=== PATIENT | female | born 1950 | race Caucasian/White ===

== ENCOUNTER 2020-04-02 16:30 | Outpatient (CLI) | payer MEDICARE, OTHER | END 2020-04-02 16:31 | disposition home or self-care (01) | LOC: COV 16:30 | PROVIDERS: ATTEND Family Medicine | DX: R05 Cough (principal); R09.81 Nasal congestion; J34.89 Other specified disorders of nose and nasal sinuses; Z20.822 Contact with and (suspected) exposure to COVID-19 ==

== ENCOUNTER 2023-04-18 10:28 | Outpatient (CLI) | payer MEDICARE, OTHER | END 2023-04-18 10:29 | disposition critical access hospital (66) | LOC: EMS 10:28 | DX: M25.572 Pain in left ankle and joints of left foot (principal); M25.472 Effusion, left ankle; M79.672 Pain in left foot; S90.02XA Contusion of left ankle, initial encounter; S99.912A Unspecified injury of left ankle, initial encounter; W10.8XXA Fall (on) (from) other stairs and steps, initial encounter; Y92.019 Unspecified place in single-family (private) house as the place of occurrence of the external cause | CPT/HCPCS: A0425; A0427 ==

== ENCOUNTER 2023-04-18 11:05 | Inpatient (IN) | payer MEDICARE, OTHER ==
--- NOTE | 2023-04-18 11:09 | ED Physician Documentation ---
PD HPI LOWER EXT INJURY - Stated complaint Stated Complaint: L ANKLE INJ - History obtained from History obtained from: Patient, EMS - Additional information Additional information: She fell down the stairs and has a isolated left ankle injury with severe pain albeit better on the way here after 75 mcg of fentanyl. No other injuries. PD PAST MEDICAL HISTORY - Present Medications Home Medications: Ambulatory Orders Medication Instructions Recorded Confirmed Atorvastatin Calcium 40 mg PO HS 04/18/23 04/18/23 Escitalopram [Lexapro] 10 mg PO DAILY 04/18/23 04/18/23 Estradiol 0.05 mg Patch [Climara 0.0375 mg TOP UD 04/18/23 04/18/23 0.05 mg] Gabapentin [Neurontin] 100 mg PO DAILY 04/18/23 04/18/23 Levothyroxine [Synthroid] 75 mcg PO DAILY 04/18/23 04/18/23 Liothyronine [Cytomel] 5 mcg PO DAILY 04/18/23 04/18/23 Progesterone, Micronized 100 mg PO DAILY 04/18/23 04/18/23 [Prometrium] Zaleplon 5 - 10 mg PO HS PRN 04/18/23 04/18/23 - Allergies Allergies/Adverse Reactions: Allergies Allergy/AdvReac Type Severity Reaction Status Date / Time No Known Allergies Allergy Unknown Verified 04/18/23 11:19 PD ED PE NORMAL - Vitals Vital signs reviewed: Yes - General General: Alert and oriented X 3, No acute distress - Neck Neck: Supple, no meningeal sign, No bony TTP - Extremities Extremities: Other (Tender over the lateral malleolus of the left ankle. No proximal fibular tenderness. No tenderness of the medial malleolus. No foot tenderness. Warm foot is warm and well-perfused. No deformity.) - Neuro Neuro: Alert and oriented X 3, Normal speech Results - Vitals Vitals: Vital Signs - 24 hr 04/18/23 04/18/23 11:07 13:41 Temperature 36.7 C Heart Rate 60 60 Respiratory 18 16 Rate Blood Pressure 136/88 H 131/76 H O2 Saturation 100 99 Oxygen O2 Source Room air - Rads (name of study) Left ankle x-ray Relevant Findings:: Final report received, EMP independent interpretation of test PD Medical Decision Making - ED course ED course: 73-year-old woman with isolated left ankle injury and has a fracture likely needing operative fixation of the distal tibia and fibula. Dr. Kennedy, orthopedics was consulted and they need to order some hardware for her but it sounds like the plan will be to admit her for subsequent operation tonight. She is in a Shimon splint and I offered to replace it with a fiberglass splint but the patient feeling more comfortable without it being manipulated at this point. Departure - Departure Disposition: [facility] DC/Xfer Clinical Impression: Tibia/fibula fracture Qualifiers: Encounter type: initial encounter Fracture type: closed Laterality: left Qualified Code(s): S82.202A - Unspecified fracture of shaft of left tibia, initial encounter for closed fracture Condition: Good Record reviewed to determine appropriate education?: Yes Discharge Date/Time: 04/18/23 14:40
--- NOTE | 2023-04-18 12:02 | XRAY Report ---
PROCEDURE: Ankle 3+V LT INDICATIONS: ankle inj TECHNIQUE: 3 views of the ankle were acquired. COMPARISON: None. FINDINGS: Examination is limited by positioning factors. Bones: Moderately displaced fractures of the distal tibia and fibula. Ankle mortise is normally alig trin[place]. No suspicious bony lesions. Soft tissues: No tibiotalar joint effusion. Achilles tendon appears normal. IMPRESSION: Distal tibial and fibular fractures. Reviewed by: Corrie Meléndez MD on 04/18/2023 12:[address] [facility] Approved by: Corrie Meléndez MD on 04/18/2023 12:[address] [facility] Station ID: [id number]
[2023-04-18] MEDS: KETOROLAC 15 MG/ML VIAL IVP STA (13:35)
[2023-04-18] MEDS: HYDROmorphone 1 MG/ML CARPUJECT IVP STA (13:38)
[2023-04-18] MEDS ORDERED: HYDROcod/ACETAM 5/325 MG TABLET PO PRN (13:58)
[2023-04-18] MEDS ORDERED: ONDANSETRON 4 MG/2 ML VIAL IVP PRN ×2 (13:58→16:52)
[2023-04-18] MEDS ORDERED: ACETAMINOPHEN 325 MG TABLET PO PRN (13:58)
[2023-04-18] MEDS ORDERED: DOCUSATE SODIUM 100 MG CAPSULE PO PRN (13:58)
--- NOTE | 2023-04-18 14:04 | HISTORY & PHYSICAL EXAMINATION ---
HPI - History of Present Illness HPI Comment/Other: Amanda Cross Is a 73-year-old woman who apparently fell down on some concrete steps going to her studio this morning and twisted her ankle. Noted immediate deformity in her foot and ankle area as well as pain. Was unable to stand or weight-bear. There was no bleeding wounds. No loss of conscious or nausea vomiting. No other injuries noted. No prior fractures in her ankle. PMH/PSH - Past Medical History Cardiovascular: positive: Valve disorder Neuro: positive: None MRSA Hx?: No - Past Surgical History Ortho: positive: Hip replacement Other past surgical history: Past medical history: Previous surgeries-2019 right total hip arthroplasty performed at [facility] by Dr. Hercules. Current medications: Cytomel 5 mcg p.o. daily, Lexapro 10 mg p.o. daily, Neurontin 100 mg p.o. daily, Prometrium 100 mg p.o. daily, Synthroid 75 mcg p.o. daily, zalephon 10mg daily. Allergies: None known Social & Family Hx - Social History Does the pt smoke?: No Smoking Status: Never smoker Meds/Allgy - Home Medications Home Medications: Ambulatory Orders Medication Instructions Recorded Confirmed Escitalopram [Lexapro] 10 mg PO DAILY 04/18/23 04/18/23 Gabapentin [Neurontin] 100 mg PO DAILY 04/18/23 04/18/23 Levothyroxine [Synthroid] 75 mcg PO DAILY 04/18/23 04/18/23 Liothyronine [Cytomel] 5 mcg PO DAILY 04/18/23 04/18/23 Progesterone, Micronized 100 mg PO DAILY 04/18/23 04/18/23 [Prometrium] Zaleplon 10 mg PO DAILY 04/18/23 04/18/23 - Allergies Allergies/Adverse Reactions: Allergies Allergy/AdvReac Type Severity Reaction Status Date / Time No Known Allergies Allergy Unknown Verified 04/18/23 11:19 Exam - Vital Signs Vital Signs: Vital Signs x48h Temp Pulse Resp BP Pulse Ox 04/18/23 13:41 60 16 131/76 H 99 04/18/23 11:07 36.7 C 60 18 136/88 H 100 - Physical Exam Comments/Other: Vital signs-stable HEENT: Normocephalic, PERRLA, EOMs intact, nose and throat clear, neck supple wi thout nodes Chest: Clear Cardiovascular: Regular rate and rhythm, S1 and S2 heard without murmurs Abdomen: Soft nontender active bowel sounds Extremities: Within normal limits except for the left lower extremity. Left lower extremity was in a air splint. Her toes were visible and she had active range of motion of the toes. Sensation intact. X-rays: Films that were taken in the emergency room were reviewed. There is a extra-articular distal tibia and fibular fractures noted. Impression/Plan - Problem List Problem List: 1. Closed displaced left distal tibia-fibula fracture 2. History of hypothyroidism 3. History of depression Plan: Discussed treatment options with the patient. She has opted to proceed with surgical fixation of her fracture. Will do this later this evening. We will go ahead and do an open reduction internal fixation with plating to her distal tibia fracture and probable plating to her distal fibular fracture. Risk and benefits of surgery were explained to the patient including but not limited to anesthesia risks infection loss of fixation malunion nonunion blood clots etc. All her questions were answered. She wishes to proceed with surgery as planned. Consent signed.
--- NOTE | 2023-04-18 16:22 | PHARMACY PROGRESS NOTE ---
- Best Possible Medication History Admit Date and Time: 04/18/23 1358 Processed by: Nursing Medication History completed: Yes Patient Interview: Completed Secondary Source(s): Insurance records As the person ultimately responsible for medication therapy, providers are able to order a medication from an existing home medication list in [facility] via the "Reconcile Routine" prior to Confirmation of that medication by support service tech. Such practice is discouraged except when the physician, in their clinical judgment, deems that a medical need exists for a medication without regard to previous use.
[2023-04-18] MEDS ORDERED: fentaNYL 100 MCG/2 ML VIAL ONE (16:41)
[2023-04-18] MEDS ORDERED: PROPOFOL 500 MG/50 ML 500 MG/50 ML VIAL ONE (16:41)
[2023-04-18] MEDS ORDERED: MIDAZOLAM 2 MG/2 ML VIAL ONE (16:41)
[2023-04-18] MEDS ORDERED: HYDROmorphone 0.5 MG/0.5 ML SYRINGE IVP PRN (16:52)
[2023-04-18] MEDS ORDERED: NALOXONE 0.4 MG/ML VIAL IVP PRN (16:52)
[2023-04-18] MEDS ORDERED: ATROPINE ABBOJECT 1 MG/10 ML SYRINGE IVP PRN (16:52)
[2023-04-18] MEDS ORDERED: MORPHINE 2 MG/ML CARPUJECT IVP PRN (16:52)
[2023-04-18] MEDS ORDERED: fentaNYL 100 MCG/2 ML VIAL IVP PRN (16:52)
--- NOTE | 2023-04-18 16:52 | ANESTHESIA ---
Pre-Anesthesia VS, & Labs - Diagnosis Left ankle tib/fib ankle fracture - Procedure ORIF left tib/fib ankle fracture Vital Signs: Temp Pulse Resp BP Pulse Ox O2 Flow Rate 36.5 C 51 L 16 134/64 H 95 04/18/23 15:55 04/18/23 15:55 04/18/23 15:55 04/18/23 15:55 04/18/23 15:55 Height: 5 ft 5 in Weight (kg): 64 kg Body Mass Index: 23.4 BMI Classification: Normal - NPO Last Food Intake: 0800 - Is Patient ?: No Home Medications and Allergies Home Medications: Ambulatory Orders Atorvastatin Calcium 40 mg PO HS 04/18/23 Escitalopram [Lexapro] 10 mg PO DAILY 04/18/23 Estradiol 0.05 mg Patch [Climara 0.05 mg] 0.0375 mg TOP UD 04/18/23 Gabapentin [Neurontin] 100 mg PO DAILY 04/18/23 Levothyroxine [Synthroid] 75 mcg PO DAILY 04/18/23 Liothyronine [Cytomel] 5 mcg PO DAILY 04/18/23 Progesterone, Micronized [Prometrium] 100 mg PO DAILY 04/18/23 Zaleplon 5 - 10 mg PO HS PRN 04/18/23 Active Medications Acetaminophen (Acetaminophen 325 Mg Tablet) 650 - 975 mg PO Q4HR PRN PRN Reason: PAIN Hydrocodone Bitart/Acetaminophen (Hydrocod/Acetam 5/325 Mg Tablet) 1 tab PO Q4HR PRN PRN Reason: PAIN Docusate Sodium (Docusate Sodium 100 Mg Capsule) 100 mg PO BID PRN PRN Reason: Constipation Ondansetron HCl (Ondansetron 4 Mg/2 Ml Vial) 4 mg IVP Q6HR PRN PRN Reason: Nausea / Vomiting Prochlorperazine Edisylate (Prochlorperazine 10 Mg/2 Ml Vial) 10 mg IVP Q6HR PRN PRN Reason: Nausea / Vomiting Atorvastatin Calcium 40 mg PO HS 04/18/23 Escitalopram [Lexapro] 10 mg PO DAILY 04/18/23 Estradiol 0.05 mg Patch [Climara 0.05 mg] 0.0375 mg TOP UD 04/18/23 Gabapentin [Neurontin] 100 mg PO DAILY 04/18/23 Levothyroxine [Synthroid] 75 mcg PO DAILY 04/18/23 Liothyronine [Cytomel] 5 mcg PO DAILY 04/18/23 Progesterone, Micronized [Prometrium] 100 mg PO DAILY 04/18/23 Zaleplon 5 - 10 mg PO HS PRN 04/18/23 Allergies/Adverse Reactions: Allergies Allergy/AdvReac Type Severity Reaction Status Date / Time No Known Allergies Allergy Unknown Verified 04/18/23 11:19 Anes History & Medical History - Anesthetic History Anesthesia Complications: reports: No previous complications - Medical History Cardiovascular: reports: Valve disorder (sees cardiology every 2 years for MVP. States it has been stable. States she has good exercise tolerance, no SOB or afib) Pulmonary: reports: None Gastrointestinal: reports: None Urinary: reports: None Neuro: reports: None Musculoskeletal: reports: None Endocrine/Autoimmune: reports: HyPOthyroidism Blood Disorders: reports: Anemia Skin: reports: None Smoking Status: Never smoker Psychosocial: reports: No issues indicated History of Cancer?: No - Surgical History Gynecologic: reports: Oophrectomy Orthopedic: reports: Hip replacement Other Past Surgical History: Past medical history: Previous surgeries-2019 right total hip arthroplasty performed at [facility] by Dr. Hercules. Current medications: Cytomel 5 mcg p.o. daily, Lexapro 10 mg p.o. daily, Neurontin 100 mg p.o. daily, Prometrium 100 mg p.o. daily, Synthroid 75 mcg p.o. daily, zalephon 10mg daily. Allergies: None known Exam General: Alert, Oriented x3, Cooperative, No acute distress Dental: WNL Mouth Openin Fingerbreadth Neck Mobility: Normal Mallampati classification: II Thyromental Distance: 4-6 cm Mental/Cognitive Status: Alert/Oriented X3, Normal for patient Plan Anesthesia Type: Spinal, Popliteal Block (left) Consent for Procedure(s) Verified and Reviewed: Yes Code Status: Attempt Resuscitation ASA classification: 2-Mild systemic disease Is this case an emergency?: Yes
[2023-04-18] MEDS ORDERED: LACTATED RINGERS 1,000 ML IV SCH (17:00)
[2023-04-18] MEDS ORDERED: ceFAZolin 1 GM VIAL ONE (17:20)
[2023-04-18] MEDS ORDERED: ePHEDrine 50 MG/ML VIAL IVP ONE (17:30)
[2023-04-18] MEDS ORDERED: ROPIVACAINE 0.5% PF 20 ML VIAL ONE (17:51)
[2023-04-18] MEDS ORDERED: DEXAMETHASONE 4 MG/ML VIAL ONE (17:51)
[2023-04-18] MEDS ORDERED: SODIUM CHLORIDE 0.9% 10 ML VIAL IVP ONE (19:17)
[2023-04-18] MEDS ORDERED: PROPOFOL 200 MG/20 ML VIAL IVP ONE (19:43)
--- NOTE | 2023-04-18 20:54 | OPERATIVE REPORT ---
Operative Report - General Admit Date: 04/18/23 Procedure Date: 04/18/23 Planned Procedure: Open reduction internal fixation of left distal tibia and left distal fibular fracture Pre-Op Diagnosis: Closed displaced left distal tibia and distal fibula fracture Procedure Performed: Open reduction internal fixation of left distal tibia and distal fibular fractures Post Op Diagnosis: Same - Procedure Note Primary Surgeon: Sofy Kennedy MD Secondary Surgeon: CASSI Figueroa Anesthesia Technique: Spinal IV Fluids (mL): 1,200 Estimated Blood Loss (mL): 250 Complications: None - Other Other Information/Narrative: Patient was taken to the operating room and the evening of her admission where she was placed under a spinal anesthetic with an complication. She was then positioned supine with a hip roll underneath her left hip and the thigh pneumatic tourniquet placed on the left leg. We then prepped and draped the leg usual fashion for our procedure. The tourniquet was not inflated during our procedure. Through longitudinal skin incision approximately 2 cm lateral from the anterior tibial ridge, we used a lepe elevator to strip the musculature off of the anterolateral aspect of the tibia from the level of the fracture and more proximally. With minimal traction on the leg we were able to get a good reduction of the tibial fragments. A Seeley was utilized to leverage open the fracture and we irrigated the wound and the fracture with minimal amount of saline. There was no soft tissue interposition between the fragments. Using towel clip reduction clamp we were able to hold the tibial fragments together. Fluoroscopic views and AP lateral projection showed good reduction of our fracture. Satisfied with this we then proceeded to apply a 7 hole anterolateral distal tibial plate from our [employer] set. Contour of the plate. To match our tibia. Fluoroscopic view confirmed the distal approximation of the plate to the fracture. A 1 x 5 mm diameter smooth K wire was then used to hold the plate provisionally against the distal tibia fragment. We then proceeded to fill with standard technique appropriate length screws into our plate. 3 2.7 millimeter locking screws were used to fill the 3 most distal holes of our plate. The next proximal holes of our distal end of our plate was anchored with the appropriate length 3 to 5 mm locking screws. Lastly we anchored the plate to the shaft of the tibia using 4 3 5 mm cortical screws of the appropriate length. Fluoroscopic views and AP and lateral projection showed satisfactory placement of her hardware as well as reduction of our tibia fracture. Next we directed our attention posterior laterally. Longitudinal skin incision was then applied so we get a 10 good view of our distal fibular fracture. With longitudinal traction on the foot and ankle we are able to manipulate the distal fibular fracture until it was able to be anatomically reduced. This reduction was held with a small towel clip reduction clamp. We then inserted the three 5 mm cortical screw obliquely using it as a compression fracture meant screw to obtain provisional fixation of our fibular fracture. We then applied a 7 hole distal fibular fracture along the distal portion of the fibular overlying her fracture. Fluoroscopic views showed good position of our plate relative to the fibula. We then proceeded to use standard technique to fill the 3 most distal holes of our plate with 3 to 5 mm locking screws. A lobster claw clamp was then used to apply the plate to the fibular shaft. We then proceeded to insert for three 5 mm cortical screws in the plate to apply this plate to the fibular shaft. Final set of fluoroscopic views AP and lateral projection showed good fixation of our distal fibular and tibial fractures. Good placement hardware as well. We then irrigated the wounds out thoroughly with saline. Wounds were then closed in layers using 3-0 Vicryl stitch to close the subcutaneous tissues. Finally skin isidro used approximate the skin edge. We then wash the wound and applied Xeroform gauze 4 x 4's Webril and a short leg posterior fiberglass splint applied to the leg. Patient was then awoken from an esthesia and taken to recovery room in satisfactory condition after a peripheral block is been placed. Estimated blood loss: 250 mL Replacement: 1200 mL Tourniquet time: None Intraoperative complications: None Plan: Patient be discharged home nonweightbearing on this extremity when she is independent per physical therapy.
[2023-04-18] MEDS: LACTATED RINGERS 700 ML IV ONE (21:00)
--- NOTE | 2023-04-18 21:06 | ANESTHESIA POST OP EVALUATION ---
Anesthesia Post Eval - Post Anesthesia Eval Vitals: Last Vital Signs Temp 36.5 C 04/18/23 15:55 Pulse 51 L 04/18/23 15:55 Resp 16 04/18/23 15:55 BP 134/64 H 04/18/23 15:55 Pulse Ox 95 04/18/23 15:55 O2 Flow Rate CV Function Including HR & BP: Stable Pain Control: Satisfactory Nausea & Vomiting: Negative Mental Status: Baseline Respiratory Status: Airway Patent Hydration Status: Satisfactory Anesthesia Complications: None
[2023-04-18] MEDS ORDERED: HYDROmorphone 1 MG/ML CARPUJECT IVP PRN (21:07)
[2023-04-18] MEDS: CELECOXIB 100 MG CAPSULE PO SCH (22:08)
[2023-04-18] MEDS: ACETAMINOPHEN 325 MG TABLET PO SCH (22:09)
[2023-04-18] MEDS: ATORVASTATIN 40 MG TABLET PO SCH (22:10)
[2023-04-18] MEDS: ceFAZolin (2G) 2 GM in SODIUM CHLORIDE 0.9% MINIBAG 100 ML IV SCH (22:10)
[2023-04-18] MEDS: NS W/20 MEQ KCL 1,000 ML IV SCH (22:11)
[2023-04-19] MEDS: oxyCODONE 5 MG TABLET PO PRN (00:05)
[2023-04-19] MEDS: PROCHLORPERAZINE 10 MG/2 ML VIAL IVP PRN (04:43)
[2023-04-19] MEDS: GABAPENTIN 100 MG CAPSULE PO SCH (08:51)
[2023-04-19] MEDS: LIOTHYRONINE 5 MCG TABLET PO SCH (08:51)
[2023-04-19] MEDS: LEVOTHYROXINE 75 MCG TABLET PO SCH (08:52)
[2023-04-19] MEDS: ASPIRIN EC 81 MG TABLET PO SCH (08:52)
[2023-04-19] MEDS: ESCITALOPRAM 10 MG TABLET PO SCH (08:52)
[2023-04-19] MEDS ORDERED: ESTRADIOL 0.05 MG PATCH TOP SCH (09:00)
--- NOTE | 2023-04-19 09:10 | XRAY Report ---
PROCEDURE: OR C-Arm Procedure INDICATIONS: BROKEN LEFT TIBIA AND FIBULA FRACTURES FLUORO TIME: 0.4 MIN TECHNIQUE: 2 intraoperative fluoroscopic images COMPARISON: Ankle radiograph on April 18, 2023. FINDINGS: 2 intraoperative fluoroscopic images demonstrate lateral surgical plate and screw fixation of comminu dash distal tibia and fibular fractures. Please see operative report for details. Flurooscopy time: 0.4 minutes minutes Air kerma: 2.3 mGy IMPRESSION: 2 intraoperative fluoroscopic images demonstrate lateral surgical plate and screw fixation of comminu dash distal tibia and fibular fractures. Please see operative report for details. Reviewed by: Michell Weaver MD on 04/19/2023 9:08 AM PST Approved by: Michell Weaver MD on 04/19/2023 9:08 AM PST Station ID: [id number]
--- NOTE | 2023-04-19 11:03 | PHARMACY PROGRESS NOTE ---
- Best Possible Medication History Admit Date and Time: 04/18/23 1358 Processed by: Pharmacy Medication History completed: Yes Patient Interview: Completed Secondary Source(s): Insurance records (PT UNABLE TO PARTICIPATE) As the person ultimately responsible for medication therapy, providers are able to order a medication from an existing home medication list in [facility] via the "Reconcile Routine" prior to Confirmation of that medication by pharmacy retail support specialist. Such practice is discouraged except when the physician, in their clinical judgment, deems that a medical need exists for a medication without regard to previous use.
[2023-04-19] MEDS ORDERED: ZALEPLON 10 MG PO PRN (14:17)
[2023-04-19] MEDS: ESTRADIOL 0.0375 MG TOP SCH (14:17)
--- NOTE | 2023-04-19 16:56 | PROVIDER PROGRESS NOTE ---
Subjective - Prog Note Date Prog Note Date: 04/19/23 Prog Note Time: 16:54 - Subjective Pt reports feeling: Improved (Still with minimal post op pain) Objective - Vital Signs/Intake & Output Vital Signs: Vital Signs x48h Temp Pulse Pulse Pulse Pulse Resp BP 04/19/23 16:21 36.6 C 71 20 124/62 04/19/23 11:55 36.6 C 72 18 124/66 04/19/23 11:00 81 91 75 BP BP BP Pulse Ox 04/19/23 16:21 98 04/19/23 11:55 97 04/19/23 11:00 123/63 126/74 134/56 H Intake & Output: Intake & Output 04/16/23 04/17/23 04/18/23 04/19/23 23:59 23:59 23:59 23:59 Intake Total 300 1480 Output Total 2000 Balance 300 -520 - Other Results/Comments Other Results/Comments: Examination: Patient still is rather hip is static both on the dorsal and plantar aspect of her forefoot. Has very little active motor function of her toes as well. Toes were warm with good capillary filling. No passive stretch pain with hyperextension of the toes. Assessment/Plan - Problem List (1) Tibia/fibula fracture Impression: Assessment: Status post open duction internal fixation of left distal tibia and fibular fracture-doing well postop day #1. Patient's hypnesthesia in her foot and lack of motor function in the toes likely due to to her peripheral nerve block that was done postoperatively. I discussed this with anesthesia today. They expect that the effects of the block could last 20 to 24 hours. Plan: Will plan on keeping the patient in for 1 more day for additional physical therapy and wait until her current block is worn off. She will continue to ambulate with a walker nonweightbearing on the operated extremity. Will reevaluate the leg then in the morning. Qualifiers: Encounter type: initial encounter Fracture type: closed Laterality: left Qualified Code(s): S82.202A - Unspecified fracture of shaft of left tibia, initial encounter for closed fracture; S82.402A - Unspecified fracture of shaft of left fibula, initial encounter for closed fracture
[2023-04-19] MEDS: ZALEPLON 10 MG PO PRN (21:04)
--- NOTE | 2023-04-20 08:01 | Discharge Plan ---
Discharge Plan Problem Reviewed?: Yes Disposition: Home, Self Care Condition: Good Prescriptions: oxyCODONE [Roxicodone] 5 mg PO Q6HR PRN #20 tab PRN Reason: Severe Breakthrough pain(8-10) Diet: Regular Activity Restrictions: No weightbearing on leg (Keep splint clean and dry. Keep leg elevated when seated.) Shower Restrictions: Yes Driving Restrictions: Yes Assistance Devices: Walker Weight Bearing: No Weight Health Concerns: you fell because of tripping and broke the left lower tibia and fibuula. You underwent surgery and had a good recovery postop. recovery. Plan of Treatment: keep the wound clean and dry. see me in 3 weeks pain medicine will be vicodin 1 tablet every 6 hours as needed. Care Goals: complete recover wiith full ambulation Assessment: she is alert and oriented and endorses she will follow thru No Smoking: If you smoke, Please STOP! Call for help. Follow-up with: Baron Kennedy MD [Provider Admit Priv/Credential] - 05/07/23
--- NOTE | 2023-04-20 08:23 | DISCHARGE SUMMARY ---
"Discharge Summary Admit Date: 04/18/23 Discharge Date: 04/20/23 Discharging Provider: Sofy Kennedy Code Status: Attempt Resuscitation Condition at Discharge: Good Discharge Disposition: 01 Home, Self Care - DIAGNOSES Admission Diagnoses: Closed left distal tibia and distal fibula fractures Discharge Diagnoses with Status of Each Condition: All fractures stable - HPI History of Present Illness: See dictated HPI - HOSPITAL COURSE Hospital Course: Benign post op course. Independent with walker - nnonweightbearing on splinted leg on discharge. - ALLERGIES Allergies/Adverse Reactions: Allergies Allergy/AdvReac Type Severity Reaction Status Date / Time No Known Allergies Allergy Unknown Verified 04/19/23 08:04 - MEDICATIONS Home Medications: Ambulatory Orders Medication Instructions Recorded Confirmed Atorvastatin Calcium 40 mg PO HS 04/18/23 04/18/23 Escitalopram [Lexapro] 10 mg PO DAILY 04/18/23 04/18/23 Estradiol 0.05 mg Patch [Climara 0.0375 mg TOP UD 04/18/23 04/18/23 0.05 mg] Gabapentin [Neurontin] 100 mg PO DAILY 04/18/23 04/18/23 Levothyroxine [Synthroid] 75 mcg PO DAILY 04/18/23 04/18/23 Liothyronine [Cytomel] 5 mcg PO DAILY 04/18/23 04/18/23 Progesterone, Micronized 100 mg PO DAILY 04/18/23 04/18/23 [Prometrium] Zaleplon 10 - 20 mg PO HS PRN 04/18/23 04/19/23 Nitrofurantoin [Macrobid] 100 mg PO DAILY PRN 04/19/23 04/19/23 Acetaminophen [Tylenol] 650 - 975 mg PO Q4HR tab 04/20/23 Aspirin EC [Ecotrin] 81 mg PO BID tab 04/20/23 Atorvastatin [Lipitor] 40 mg PO HS tab 04/20/23 Celecoxib [CeleBREX] 200 mg PO BID cap 04/20/23 Docusate Sodium 100Mg Capsule 100 mg PO BID PRN cap 04/20/23 [Colace 100Mg Capsule] Gabapentin [Neurontin] 100 mg PO DAILY cap 04/20/23 Levothyroxine [Synthroid] 75 mcg PO QDBREAKFAST tab 04/20/23 oxyCODONE [Roxicodone] 5 mg PO Q6HR PRN #20 tab 04/20/23 Home Medications Other | Comments: Oxycodone 5 mg po q6 hours prn pain - PHYSICAL EXAM AT DISCHARGE Physical Exam Other/Comments: same as preop except left leg in post op splint. N/V ok left leg. - QUALITY (Female Hip Fx Only) Was patient sent home on osteoporosis medication?: No - FOLLOW UP Follow Up: DR. Sofy Kennedy in office in 3 weeks - TIME SPENT Time Spent in Discharge (Minutes): 20"
[2023-04-20 10:10] VITALS: BP 130/64; O2SAT 99
--- NOTE | 2023-04-20 10:38 | ANESTHESIA POST OP EVALUATION ---
Anesthesia Post Eval - Post Anesthesia Eval Vitals: Last Vital Signs Temp 36.8 C 04/20/23 10:08 Pulse 77 04/20/23 10:08 Resp 18 04/20/23 10:08 BP 130/64 04/20/23 10:08 Pulse Ox 99 04/20/23 10:08 O2 Flow Rate - Other Details/Therapies Other Details/Therapies: Patient reports her popliteal/sciatic block has completely resolved and she is able to wiggle her toes. She reports she was very pleased with her block as it provided her with good pain control for the first 24 hours. She is being discharged today in good condition.
== END 2023-04-20 11:25 | disposition home or self-care (01) | DRG 563 ==
LOC: EDUNIT# → ED 11:05 → MS2 13:58
PROVIDERS: ADMIT Orthopaedic Surgery; ATTEND Orthopaedic Surgery
PROC: 0QSH04Z Reposition Left Tibia with Internal Fixation Device, Open Approach (ICD-10-PCS; 2023-04-18)
PROC: 0QSK04Z Reposition Left Fibula with Internal Fixation Device, Open Approach (ICD-10-PCS; principal; 2023-04-18 17:00)
DX: S82.301A Unspecified fracture of lower end of right tibia, initial encounter for closed fracture (principal); S82.831A Other fracture of upper and lower end of right fibula, initial encounter for closed fracture; S82.302A Unspecified fracture of lower end of left tibia, initial encounter for closed fracture; S82.832A Other fracture of upper and lower end of left fibula, initial encounter for closed fracture; W10.9XXA Fall (on) (from) unspecified stairs and steps, initial encounter; X50.1XXA Overexertion from prolonged static or awkward postures, initial encounter; E03.9 Hypothyroidism, unspecified; I34.1 Nonrheumatic mitral (valve) prolapse; F32.A Depression, unspecified; Z96.641 Presence of right artificial hip joint
CPT/HCPCS: 73610; 96374; 96375; 97161; 97535; 99284; 99285; A9270; C1713; J1170; J2795; J7120

== ENCOUNTER 2023-05-07 08:00 | Outpatient (CLI) | payer MEDICARE, OTHER ==
--- NOTE | 2023-05-07 14:02 | XRAY Report ---
PROCEDURE: Ankle 3 View LT INDICATIONS: LEFT ANKLE ORIF TECHNIQUE: 3 views of the ankle were acquired. COMPARISON: Left ankle radiographs 04/18/2023. FINDINGS: Bones: Plate and screw fixation at the distal fibula. The prior distal fibular fractures not well se en. Plate and screw fixation at the distal tibia lateral aspect. The plate at the distal tibia is not completely flush. The fracture at the distal tibia appears comminuted. No dislocations. Ankle morti se is normally aligned. No suspicious bony lesions. Soft tissues: No tibiotalar joint effusion. Achilles tendon appears normal. IMPRESSION: Interval distal tibia and fibula ORIF. The distal tibia plate is not completely flush. Alignment appears improved. The distal tibia fracture appears comminuted. Reviewed by: Wilder Rosales MD on 05/07/2023 2:00 PM PST Approved by: Wilder Rosales MD on 05/07/2023 2:00 PM PST Station ID: [id number]
== END 2023-05-07 23:59 | disposition home or self-care (01) ==
LOC: DI.WOS 08:00
PROVIDERS: ATTEND Orthopaedic Surgery
DX: S82.302D Unspecified fracture of lower end of left tibia, subsequent encounter for closed fracture with routine healing (principal); S82.832D Other fracture of upper and lower end of left fibula, subsequent encounter for closed fracture with routine healing

== ENCOUNTER 2023-05-22 08:00 | Outpatient (CLI) | payer MEDICARE, OTHER ==
--- NOTE | 2023-05-22 16:49 | XRAY Report ---
PROCEDURE: Ankle 3 View LT INDICATIONS: LEFT ANKLE ORIF TECHNIQUE: 3 views of the ankle were acquired. COMPARISON: 05/07/2023. FINDINGS: Bones: Stable postoperative changes of open reduction internal fixation of comminuted distal tibial fracture. Stable postsurgical changes of open reduction and internal fixation of the distal left fibu la. No evidence for hardware failure. Stable postsurgical alignment. No acute fractures identified. Soft tissues: No tibiotalar joint effusion. Achilles tendon appears normal. IMPRESSION: Stable postsurgical changes and alignment status post open reduction and internal fixation of distal left fibular and tibial fractures in anatomic alignment. No evidence for gross hardware complication. Reviewed by: Juan Henson MD on 05/22/2023 4:47 PM PDT Approved by: Juan Henson MD on 05/22/2023 4:47 PM PDT Station ID: [id number]
--- NOTE | 2023-05-22 16:51 | XRAY Report ---
PROCEDURE: Foot 3 View LT INDICATIONS: LEFT FOOT PAIN POST ANKLE ORIF TECHNIQUE: 3 views of the foot were acquired. COMPARISON: None. FINDINGS: Bones: No acute fractures or dislocations. No suspicious bony lesions. Partially imaged surgical fi xation hardware of the distal left tibia and fibula better described on dedicated imaging of the ankl e. Please see separate report for details. Soft tissues: No suspicious soft tissue calcifications or masses. IMPRESSION: Left foot without acute fracture or dislocation. No abnormalities identified to explain patient's malaika n. If there is continued clinical concern for pathology or occult fracture, consider follow-up imaging w ith repeat radiographs in 10-14 days and possible advanced imaging (CT, MRI, bone scan) if symptoms p ersist. Reviewed by: Juan Henson MD on 05/22/2023 4:49 PM PDT Approved by: Juan Henson MD on 05/22/2023 4:49 PM PDT Station ID: [id number]
== END 2023-05-22 23:59 | disposition home or self-care (01) ==
LOC: DI.WOS 08:00
PROVIDERS: ATTEND Orthopaedic Surgery
DX: S82.302D Unspecified fracture of lower end of left tibia, subsequent encounter for closed fracture with routine healing (principal); S82.832D Other fracture of upper and lower end of left fibula, subsequent encounter for closed fracture with routine healing

== ENCOUNTER 2023-06-04 15:28 | Outpatient (CLI) | payer MEDICARE, OTHER ==
--- NOTE | 2023-06-04 17:15 | XRAY Report ---
PROCEDURE: Ankle 3+V LT INDICATIONS: UNSP FX LOWER END OF L TIBIA, SUBS FOR CLOS FX W TECHNIQUE: 3 views of the ankle were acquired. COMPARISON: Left ankle radiograph on May 22, 2023, May 07, 2023 and intraoperative fluoroscopic i román on April 18, 2023. FINDINGS: Bones: Status post ORIF of the distal tibia and fibula comminuted fractures. As before, the lateral surgical plate of the distal tibia is not flush with the cortex. The hardware is intact and appears s imilar to prior. There are ghost tracts within the tibia from prior screw fixations. Fracture planes remain conspicuous with no significant callus formation. Stable alignment on nonweightbearing view wi th congruent ankle mortise. No suspicious bony lesions. Soft tissues: No tibiotalar joint effusion. Achilles tendon appears normal. Mild diffuse postsurgic al soft tissue swelling. IMPRESSION: 1.Status post ORIF of the distal tibia and fibula comminuted fractures. As before, the lateral surgic al plate of the distal tibia is not flush with the cortex. The hardware is intact and appears similar to prior. 2.No significant interval osseous healing compared to prior. Fracture planes remain conspicuous. Reviewed by: Michell Weaver MD on 06/04/2023 5:14 PM PDT Approved by: Michell Weaver MD on 06/04/2023 5:14 PM PDT Station ID: [id number]
== END 2023-06-04 15:29 | disposition home or self-care (01) ==
LOC: DI.S 15:28
PROVIDERS: ATTEND Orthopaedic Surgery
DX: S82.302D Unspecified fracture of lower end of left tibia, subsequent encounter for closed fracture with routine healing (principal)

== ENCOUNTER 2023-07-16 10:43 | Outpatient (CLI) | payer MEDICARE, OTHER ==
--- NOTE | 2023-07-16 12:35 | XRAY Report ---
PROCEDURE: Ankle 3+V LT INDICATIONS: LEFT ANKLE PAIN TECHNIQUE: 3 views of the ankle were acquired. COMPARISON: 06/04/2023, 05/07/2023. FINDINGS: Bones: Stable postsurgical changes from open reduction and internal fixation of previously described comminuted fractures of the distal left tibia and left fibula. Postsurgical alignment is stable. No evidence for hardware loosening or failure. As before, the lateral plate of the distal fibula is not flushed with the cortex. Fracture line remains not significantly changed compared to the prior study. No significant periosteal reaction or bridging callus formation in the interim. Ankle mortise appear s intact with weightbearing. Soft tissues: No significant tibiotalar joint effusion. Achilles tendon appears normal. IMPRESSION: Stable postsurgical changes and alignment from open reduction and internal fixation of distal tibial and fibular comminuted fractures. Stable appearance of lateral surgical plate of the distal tibia not flush with the cortex. No evidence for hardware failure or loosening. There is been no significant i nterval osseous healing compared to the prior study. No significant callus formation or decreased con spicuity of visualized fracture lines. Reviewed by: Juan Henson MD on 07/16/2023 12:34 PM PDT Approved by: Juan Henson MD on 07/16/2023 12:34 PM PDT Station ID: [id number]
== END 2023-07-16 10:44 | disposition home or self-care (01) ==
LOC: DI 10:43
PROVIDERS: ATTEND Orthopaedic Surgery
DX: S82.302D Unspecified fracture of lower end of left tibia, subsequent encounter for closed fracture with routine healing (principal); S82.832D Other fracture of upper and lower end of left fibula, subsequent encounter for closed fracture with routine healing